=== PATIENT | female | born 1965 | race Caucasian/White ===

== ENCOUNTER → 2016-06-14 | Outpatient (CLI) | payer BC ==
[~2016-06-14] MED LIST: IBUP-103 PO; LSN/10125 PO; SERT50TA PO
[2016-06-14 17:11] LABS: BLOOD UREA NITROGEN 16 mg/dl (7-18); BUN/CREATININE RATIO 16.6 (10-20); CALCIUM 8.6 mg/dl (8.5-10.1); CARBON DIOXIDE 33 mmol/L (21-32); CHLORIDE 107 mmol/L (98-107); CREATININE 0.99 mg/dl (0.60-1.20); GLUCOSE 78 mg/dl (70-99); SODIUM 143 mmol/L (136-145)
[2016-06-14 17:24] LABS: CHOLESTEROL 168 mg/dl (0-200); CHOLESTEROL/HDL RATIO 2.2; HDL CHOLESTEROL 78 mg/dl; LDL CHOLESTEROL CALCULATED 76 mg/dl; TRIGLYCERIDES 70 mg/dl (0-150); VERY LOW DENSITY LIPOPROT CALC 14 mg/dl
== END | disposition home or self-care (01) ==
LOC: C.LABBC 14:41
PROVIDERS: ATTEND Physician Assistant Medical
DX: E03.9 Hypothyroidism, unspecified (principal); I10 Essential (primary) hypertension

== ENCOUNTER 2016-10-28 10:08 | Emergency (ER) | payer BC ==
[~2016-10-28] VITALS: Ht 154.9 cm; Wt 77.2 kg
[2016-10-28 10:09] VITALS: TEMP 36.7; Ht 154.9 cm; Wt 77.2 kg
[2016-10-28] MEDS ORDERED: KETOROLAC TROMETHAMINE 60 MG/2 ML VIAL IM STA (10:22)
--- NOTE | 2016-10-28 11:05 | DIAGNOSTIC IMAGING REPORT ---
L-SPINE MIN 4 VIEWS ROUTINE CLINICAL HISTORY: Back pain radiating into left lower extremity. COMPARISON: None FINDINGS: Alignment of lumbar spine is anatomic. Vertebral body heights are maintained. No fracture or suspicious lesion is present. There is mild to moderate multilevel facet arthrosis and degenerative disc disease of the lumbar spine. Left upper quadrant postsurgical findings are present. IMPRESSION: 1. No acute lumbar spine fracture. 2. Mild to moderate multilevel degenerative disc disease and facet arthrosis of the lumbar spine. Electronically signed by: Diaz Bustamante M.D. 10/28/2016 11:04 AM Dictated Date/Time: 10/28/2016 11:02 AM
--- NOTE | 2016-10-28 11:06 | DIAGNOSTIC IMAGING REPORT ---
LEFT HIP UNILATERAL 2 VIEWS CLINICAL HISTORY: Left hip pain. COMPARISON: None FINDINGS: Alignment of the left hip is anatomic. No fracture or suspicious lesion is present. There is no evidence for avascular necrosis. There is mild osteophytosis of the left hip. IMPRESSION: 1. No acute fracture. 2. Mild osteoarthritis of the left hip. Electronically signed by: Diaz Bustamante M.D. 10/28/2016 11:05 AM Dictated Date/Time: 10/28/2016 11:04 AM
--- NOTE | 2016-10-28 11:08 | DIAGNOSTIC IMAGING REPORT ---
LEFT FOOT MIN 3 VIEWS ROUTINE CLINICAL HISTORY: Left foot pain. COMPARISON: None FINDINGS: There is mild posterior and plantar calcaneal spurring. Tarsometatarsal joints are intact. No acute fracture within the left foot is identified. There is mild arthritis within several articulations of the left foot. IMPRESSION: 1. No acute fracture or dislocation of left foot. 2. Mild osteoarthritis within several articulations of the left foot. Electronically signed by: Diaz Bustamante M.D. 10/28/2016 11:06 AM Dictated Date/Time: 10/28/2016 11:05 AM
[2016-10-28 11:43] VITALS: BP 126/71; PULSE 62; O2SAT 97
--- NOTE | 2016-10-28 15:17 | EMERGENCY ROOM VISIT NOTE ---
History Report prepared by Roman: Pura Morejon Under the Supervision of: Dr. Carroll Gatica M.D. First contact with patient: 10:14 Chief Complaint: LEG PAIN,LEG INJURY Stated Complaint: PAIN IN LEFT HEEL/LEG History of Present Illness The patient is a 51 year old female who presents to the Emergency Room with complaints of persistent foot pain starting a few days ago. 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 For the past few days, when she returns from work and takes off her boots, she has noticed that the bottoms of her feet are sore. She has pain when she tries to bear weight on her feet. Last night, when she took off her boots, she noticed that both feet were sore, but her left foot especially her left heel was more painful than before. She also developed left hip pain later that night. She notes that she was favoring one leg while she was walking. There is no redness or swelling around her hip. She is having leg pain up into her calf. She denies any leg swelling, chest pain, SOB, fever, abdominal pain, or vomiting. She denies any numbness in her feet and can feel her toes. She denies any recent falls. She notes that she has been busier at work for the last few days. Her hip has been bothering her for over 1 year now. She has a history of sciatica. She has not had a flare up of her sciatica in around 15 years. She states that her current pain does feel like sciatica. She denies any history of plantar fasciitis. She denies any history of blood clots in her leg. She denies any recent travel. She denies any hormone use. Source of History: patient Onset: few days ago Position: foot (bilateral) Quality: other (sore) Timing: other (persistent) Modifying Factors (Worsening): other (weight bearing) Associated Symptoms: No fevers, No chest pain, No SOB, No vomiting, No abdominal pain, No numbness Note: Pt reports left hip pain, left leg pain. Pt denies hip redness/swelling, leg swelling. Review of Systems See HPI for pertinent positives & negatives. A total of 10 systems reviewed and were otherwise negative. Past Medical & Surgical Medical Problems: (1) Hypertension Family History Not obtainable due to adoption Social History Smoking Status: Never Smoker Marital Status: Occupation Status: employed Current/Historical Medications Unable to Obtain Active Prescriptions or Reported Meds Allergies Coded Allergies: No Known Allergies (Unverified , 11/28/12) Physical Exam Vital Signs Date Time Temp Pulse Resp B/P (MAP) Pulse Ox O2 Delivery O2 Flow Rate FiO2 10/28/16 11:43 62 16 126/71 97 10/28/16 10:09 36.7 70 18 122/84 99 Room Air Physical Exam Constitutional: Vital signs reviewed. Eyes: Pupils are equal round reactive to light. Conjunctiva are noninjected. ENT: Pharynx is clear without erythema or exudate. Mucous membranes are moist. Neck supple without meningeal signs. Respiratory: Clear to auscultation bilaterally. Breath sounds are equal bilaterally. Cardiovascular: Regular rate and rhythm. No rubs or gallops. GI: Soft, nondistended and nontender. Bowel sounds are present. Musculoskeletal: No midline tenderness to the thoracic or lumbosacral spine. Positive SLR on the left side, negative on the right. Left hip tenderness with deep palpation, full ROM. No swelling or increased warmth. Normal distal pulses. Tender to the plantar fascia of the left foot. No swelling of the extremities. Integumentary: No cyanosis. Neurological: The patient is awake and alert. No focal deficits. Psychiatric: Normal affect. Medical Decision & Procedures ER Provider Diagnostic Interpretation: X-ray results as stated below per interpretation by me and the radiologist: LEFT FOOT MIN 3 VIEWS ROUTINE CLINICAL HISTORY: Left foot pain. COMPARISON: None FINDINGS: There is mild posterior and plantar calcaneal spurring. Tarsometatarsal joints are intact. No acute fracture within the left foot is identified. There is mild arthritis within several articulations of the left foot. IMPRESSION: 1. No acute fracture or dislocation of left foot. 2. Mild osteoarthritis within several articulations of the left foot. Electronically signed by: Diaz Bustamante M.D. 10/28/2016 11:06 AM Dictated Date/Time: 10/28/2016 11:05 AM LEFT HIP UNILATERAL 2 VIEWS CLINICAL HISTORY: Left hip pain. COMPARISON: None FINDINGS: Alignment of the left hip is anatomic. No fracture or suspicious lesion is present. There is no evidence for avascular necrosis. There is mild osteophytosis of the left hip. IMPRESSION: 1. No acute fracture. 2. Mild osteoarthritis of the left hip. Electronically signed by: Diaz Bustamante M.D. 10/28/2016 11:05 AM Dictated Date/Time: 10/28/2016 11:04 AM L-SPINE MIN 4 VIEWS ROUTINE CLINICAL HISTORY: Back pain radiating into left lower extremity. COMPARISON: None FINDINGS: Alignment of lumbar spine is anatomic. Vertebral body heights are maintained. No fracture or suspicious lesion is present. There is mild to moderate multilevel facet arthrosis and degenerative disc disease of the lumbar spine. Left upper quadrant postsurgical findings are present. IMPRESSION: 1. No acute lumbar spine fracture. 2. Mild to moderate multilevel degenerative disc disease and facet arthrosis of the lumbar spine. Electronically signed by: Diaz Bustamante M.D. 10/28/2016 11:04 AM Dictated Date/Time: 10/28/2016 11:02 AM Medications Administered Medications (Trade) Dose Ordered Sig/Екатерина Route Start Time Stop Time Status Last Admin Dose Admin Ketorolac Tromethamine (Toradol Inj) 30 mg NOW STAT IM 10/28/16 10:22 10/28/16 10:25 DC 10/28/16 10:34 30 MG ED Course 1016: The patient was evaluated in room C3. A complete history and physical exam was performed. 1022: Toradol Inj 30 mg IM. 1130: Upon reevaluation, the patient appeared to have improvement of her symptoms. I discussed dain's findings with her. She declined crutches. She verbalized agreement of the treatment plan. She was discharged home. Medical Decision This is a 51-year-old female presents with hip pain rating down her leg with foot pain. Differential diagnosis includes stress fracture, plantar fasciitis, lumbar radiculopathy, osteoarthritis. I did perform a limited focused review of portions of the patient's old chart on the electronic medical record. The patient has had no recent pertinent visits to this hospital. I did evaluate the patient as noted above. The patient is presenting with left foot pain. She is tender over the plantar fascia. His symptoms are consistent with plantar fasciitis. She also complains of hip pain which has been going on for a year as well as pain rating down her leg that she states is consistent with her sciatica. She is neurologically intact. Her distal pulses are normal. There is no discoloration to the leg. No signs of DVT or any known risk factors for DVT. I did order x-rays of the lumbar spine, hip and foot. I did review the images myself as well as the radiology report as described above. She does have osteoarthritis of the foot and hip. And she also has degenerative changes of the back. She was advised follow up with their doctor or an orthopedic physician or a compressed gases tester. I did recommend NSAIDs. She was discharged in good condition. Medication Reconcilliation Current Medication List: was personally reviewed by me Blood Pressure Screening Patient's blood pressure: Elevated blood pressure Blood pressure disposition: Elevated BP felt to be situational Impression Primary Impression: Plantar fasciitis, left Additional Impressions: Lumbar radiculopathy Osteoarthritis Osteoarthritis of foot, left Scribe Attestation The scribe's documentation has been prepared under my direct and personally reviewed by me in its entirety. I confirm that the note above accurately reflects all work, treatment, procedures, and medical decision making performed by me. Departure Information Dispostion Home / Self-Care Prescriptions Unable to Obtain Active Prescriptions or Reported Meds Referrals Shelby Ramsay,P.A. (PCP) Forms HOME CARE DOCUMENTATION FORM, IMPORTANT VISIT INFORMATION Patient Instructions Hip Osteoarthritis, Lumbar Radiculopathy, [facility], Plantar Fasciitis Additional Instructions You have been examined and treated today on an emergency basis only. This is not a substitute for, or an effort to provide, complete comprehensive medical care. It is impossible to recognize and treat all injuries or illnesses in a single emergency department visit. It is therefore important that you follow up closely with your physician. Call as soon as possible for an appointment. Return for worsening symptoms or if you develop fever, vomiting, abdominal pain , loss of control of your bowel or bladder, numbness or weakness to your legs, numbness to your private area, difficulty urinating, chest pain, shortness of breath, swelling or discoloration of the left leg or any other concerning symptoms. Problem Qualifiers Additional Impressions: Osteoarthritis Osteoarthritis location: hip Osteoarthritis type: unspecified Laterality: left Qualified Codes: M16.12 - Unilateral primary osteoarthritis, left hip Osteoarthritis of foot, left Osteoarthritis type: primary Qualified Codes: M19.072 - Primary osteoarthritis, left ankle and foot
== END 2016-10-28 11:44 | disposition home or self-care (01) ==
LOC: C.EDB 10:10 → C.EDC 11:44
DX: M72.2 Plantar fascial fibromatosis (principal); M54.16 Radiculopathy, lumbar region; I10 Essential (primary) hypertension; M51.36 Other intervertebral disc degeneration, lumbar region; M19.072 Primary osteoarthritis, left ankle and foot

== ENCOUNTER 2022-07-17 19:49 | Observation (INO) ==
[2022-07-17] MEDS ORDERED: ONDANSETRON INJ 2 MG/ML 2 ML VIAL IV STA (20:18)
[2022-07-17] MEDS ORDERED: MoRPHine SULFATE 4 MG/ML 1 ML CARP\\VIAL IV STA (20:18)
[2022-07-17 20:37] LABS: Basophils # (auto) 0.04 K/uL (0-0.2); Basophils % (auto) 0.3 %; Eosinophils # (auto) 0.42 K/uL (0-0.50); Eosinophils % (auto) 3.4 %; Immature Granulocytes # (auto) 0.03 K/uL (0.01-0.20); Immature Granulocytes % (auto) 0.2 %; Lymphocytes # (auto) 2.28 K/uL (1.2-3.4); Lymphocytes % (auto) 18.5 %; Mean Corpuscular Hemoglobin 25.4 pg (25.0-34.0); Mean Corpuscular Hgb Conc 31.4 g/dL (32.0-36.0); Mean Corpuscular Volume 80.8 fL (80.0-100.0); Mean Platelet Volume 10.7 fL (9.4-12.4); Monocytes # (auto) 1.13 K/uL (0.11-0.59); Monocytes % (auto) 9.2 %; Neutrophils # (auto) 8.41 K/uL (1.40-6.50); Neutrophils % (auto) 68.4 %; Platelet Count 356 K/uL (130-400); RDW Coefficient of Variation 17.4 % (11.5-14.5); RDW Standard Deviation 51.9 fL (36.4-46.3); Red Blood Count 4.33 M/uL (4.20-5.40); White Blood Count 12.31 K/ul (4.8-10.8)
[2022-07-17 20:52] LABS: Albumin Globulin Ratio 1.3 (0.9-2); Albumin Level 4.5 gm/dl (3.4-5.0); BUN Creatinine Ratio 17.3 (10-20); Bilirubin,Total 0.6 mg/dl (0.2-1.0); Calcium 9.5 mg/dl (8.6-10.3); Creatinine Clr Calc Pharmacy 62.7 ml/min; Est GFR (African American) 65.5 ml/min; Est GFR (Non-African American) 56.5 ml/min; Globulin 3.4 gm/dl (2.5-4.0); Potassium 3.8 mmol/L (3.5-5.1); Total Protein 7.9 gm/dl (6.0-8.3)
[2022-07-17 20:59] LABS: Troponin I High Sensitivity 5.3 pg/ml (0-14)
--- NOTE | 2022-07-17 20:59 | Emergency Department Note ---
ED Provider Note History of Present Illness Chief Complaint: Rib Injury/Pain Stated Complaint: PAIN LEFT SIDE FROM SHOULDER GOING DOWN TO RIB Time Seen by Provider: 07/17/22 20:12 57-year-old female who presents to the emergency department with complaint of left rib and shoulder pain that started 2 hours prior to arrival. The patient r eported that the pain also was worsened with movement of her shoulder and deep breathing. The patient denies any pain radiating into the jaw or neck. She also denies any diaphoresis or nausea. Patient was adopted, so does not know much about her family history. She denies any personal history of blood clots. The patient is not on any control or estrogen. She is status post hysterectomy. The patient denies any recent upper respiratory symptoms, including cough, sore throat, runny nose or sinus congestion. The patient rates her discomfort an 8 out of 10. Home Medications Medication Instructions Recorded Confirmed Type albuterol sulfate 90 mcg/actuation 2 puff inhalation Q6H PRN 10/27/20 07/17/22 Rx aerosol inhaler (ProAir HFA) shortness of breath or wheezing #8.5 grams sertraline 100 mg tablet 200 mg PO HS 07/22/21 07/17/22 History propranolol 80 mg capsule,24 80 mg PO HS #90 caps 10/24/21 07/17/22 Rx hr,extended release Unisom (doxylamine) 25 mg PO HS PRN Insomnia 07/17/22 07/17/22 History meloxicam 15 mg tablet 15 mg PO DAILY 07/17/22 07/17/22 History Allergies Allergy/AdvReac Type Severity Reaction Status Date / Time Penicillins Allergy Mild Rash Verified 07/17/22 20:53 Past Med/Surg History Medical History Adopted Anemia Anxiety and depression Arthritis Asthma ACTIVITY AND ALLERGY INDUCED>HAS NOT USED INHALER FOR A LONG TIME Disc degeneration, lumbar Hx of sleep apnea Hypertension Insomnia Osteoarthritis Restless legs syndrome Vitamin D deficiency Surgical History History of section x2 History of colonoscopy [facility] 2009 History of dilation and curettage X 2 History of esophagogastroduodenoscopy (EGD) History of gastric bypass (~2007) 2007 History of partial hysterectomy History of tooth extraction Family History Grandmother (Maternal) Breast cancer Other Adopted Social History Smoking Status: Never smoker Second Hand Exposure: No; Do You Dip or Chew Tobacco: No; Hx Alcohol Use: No Hx Substance Use: No Preferred Language: Polish Communication Ability: Effective Visual Impairment: Limited Hearing Ability: Normal Splitter Machine Required: No Beliefs That Will Affect Care: None marital status: Current Living Situation: Alone Current Living Situation Comment: just current occupational status: employed 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 Feels Safe at Home: Yes Childhood Exposure to Second-Hand Smoke: No Diet: regular caffeine: Yes Dental Care, Regularly: No Physical Activity Frequency: Does not Exercise Seatbelt Use: always Sunscreen Use: Yes Do you think of yourself as: straight/heterosexual Assistive Devices: Brace/Splint/Immobilizer and Glasses Physical Exam Vital Signs Vital Signs - 24 hr 07/17/22 19:51 07/17/22 20:04 07/17/22 20:14 Temperature 36.7 C Temperature Source Temporal Artery Scan Pulse Rate 80 69 Pulse Rate [Right Apical] 71 Pulse Rate from SpO2 Sensor Pulse Rhythm Regular Pulse Strength Normal Respiratory Rate 20 20 Respiratory Effort / Characteristics Non-Labored Spontaneous Non-Labored Spontaneous Respiratory Depth Normal Normal Respiratory Pattern Regular Regular Blood Pressure 173/106 H Blood Pressure [Right Arm] 167/129 H Blood Pressure Mean 128 Blood Pressure Mean [Right Arm] 141 Blood Pressure Position Sitting Pulse Oximetry 97 97 Oxygen Delivery Method Room Air Room Air Oxygen Flow Rate Sepsis Recent Fever Within 48 Hours No Sepsis New/Unexplained Change in Mental Status N/A Sepsis Action Taken by Nursing No Action Required Oxygen Flow Rate - Titration Pulse Oximetry Post Tiitration 07/17/22 20:23 07/17/22 21:30 07/17/22 20:30 Temperature Temperature Source Pulse Rate 68 75 Pulse Rate [Right Apical] Pulse Rate from SpO2 Sensor 76 Pulse Rhythm Pulse Strength Respiratory Rate 18 19 Respiratory Effort / Characteristics Respiratory Depth Respiratory Pattern Blood Pressure 176/110 H Blood Pressure [Right Arm] Blood Pressure Mean 132 Blood Pressure Mean [Right Arm] Blood Pressure Position Pulse Oximetry 96 87 L 96 Oxygen Delivery Method Room Air Nasal Cannula Room Air Oxygen Flow Rate Sepsis Recent Fever Within 48 Hours Sepsis New/Unexplained Change in Mental Status Sepsis Action Taken by Nursing Oxygen Flow Rate - Titration 2 Pulse Oximetry Post Tiitration 99 07/17/22 21:01 07/17/22 21:30 07/17/22 22:27 Temperature Temperature Source Pulse Rate 79 73 71 Pulse Rate [Right Apical] Pulse Rate from SpO2 Sensor 79 70 Pulse Rhythm Pulse Strength Respiratory Rate 14 14 14 Respiratory Effort / Characteristics Respiratory Depth Respiratory Pattern Blood Pressure 138/89 130/81 111/65 Blood Pressure [Right Arm] Blood Pressure Mean 105 97 80 Blood Pressure Mean [Right Arm] Blood Pressure Position Pulse Oximetry 95 99 92 Oxygen Delivery Method Room Air Nasal Cannula Room Air Oxygen Flow Rate 2 Sepsis Recent Fever Within 48 Hours Sepsis New/Unexplained Change in Mental Status Sepsis Action Taken by Nursing Oxygen Flow Rate - Titration Pulse Oximetry Post Tiitration 07/17/22 22:30 Temperature Temperature Source Pulse Rate Pulse Rate [Right Apical] Pulse Rate from SpO2 Sensor Pulse Rhythm Pulse Strength Respiratory Rate Respiratory Effort / Characteristics Respiratory Depth Respiratory Pattern Blood Pressure Blood Pressure [Right Arm] Blood Pressure Mean Blood Pressure Mean [Right Arm] Blood Pressure Position Pulse Oximetry 100 Oxygen Delivery Method Room Air Oxygen Flow Rate 2 Sepsis Recent Fever Within 48 Hours Sepsis New/Unexplained Change in Mental Status Sepsis Action Taken by Nursing Oxygen Flow Rate - Titration 0 Pulse Oximetry Post Tiitration 92 CONSTITUTIONAL: Healthy and well nourished. Alert and oriented X 3. Patient appears in mild discomfort. Patient is not diaphoretic. HEENT: No scleral icterus or conjunctival injection/pallor. NECK: Full active range of motion without discomfort. No JVD or carotid bruits. LYMPHATICS: No cervical chain adenopathy. RESPIRATORY: Clear to auscultation bilaterally with no wheezing, crackles, rhonchi or stridor. Deep breathing worsens the patient's discomfort. CARDIOVASCULAR: Regular rate and rhythm with no murmurs, rubs or gallops. GASTROINTESTINAL: Bowel sounds present in all quadrants. Soft and nontender to palpation. MUSCULOSKELETAL: Examination shows pain with range of motion of the left shoulder. She is also tender over the left distal clavicle/acromioclavicular joint and left upper chest wall. No focal tenderness through the costochondral joints. No subcutaneous emphysema or crepitance noted with palpation of the chest wall. INTEGUMENTARY: No rash or other significant dermatologic conditions noted. HEMATOLOGIC: No ecchymosis or petechiae. PSYCHIATRIC: Positive affect. NEUROLOGIC: No focal neurologic deficits noted. Course Course Patient history and physical exam were performed. Nurses notes were reviewed. Vital signs were reviewed, showing an elevated blood pressure. The patient is not tachycardic or hypoxic. Patient appears in discomfort, and physical exam does show reproducible tenderness to palpation across the left anterior chest wall and about the left shoulder, with worsening pain with range of motion of th e left shoulder as well. I did explain to the patient that her symptoms are likely musculoskeletal etiology, however recommended further work-up to rule out cardiopulmonary etiology. IV access was established, and labs were drawn. The patient was administered IV morphine and Zofran for pain. An ECG was performed, showing a normal sinus rhythm with nonspecific ST-T wave abnormalities. The patient was placed on gambling monitor while in the emergency department. A portable chest x-ray did not show any concerning findings. Review of labs shows initially a normal high-sensitivity troponin. The patient does have a mild leukocytosis with mild left shift and no bandemia. CMP and lipase were normal. I did reevaluate the patient approximately 1 hour after getting her IV morphine, and reported improvement of pain, but now has a headache. She was administered IV Tylenol for additional pain relief. At this point, the patient's D-dimer did result and was significantly elevated. I did discuss CT angiography with the patient. I did ask about any other recent upper respiratory symptoms. The patient reports that she has had a cough, and thought that it was due to seasonal allergies. The patient agreed to undergo CT imaging. The patient also reported worsening chest pain, and was administered IV Dilaudid as well. CT angiography of the chest showed multiple bilateral pulmonary emboli without right heart strain. A 2-hour repeat troponin and ECG remain normal. Findings were discussed with Dr. Hall, ED attending physician, who recommended hospitalist consultation. An order was placed for hypercoagulability work-up, then the patient was administered IV heparin with selma elly. The COVID-19 test was also ordered. I also ordered bilateral lower extremity venous Dopplers, as the patient reports that she has had some recent discomfort in her legs. Please see the [facility] hospitalist dictation for further treatment and final disposition. Administered Medications Discontinued Medications Hydromorphone HCl (Hydromorphone Inj 0.5 Mg/0.5 Ml Syr) 0.5 mg IV NOW STA Stop: 07/17/22 21:23 Last Admin: 07/17/22 21:26 Dose: 0.5 mg Documented By: RAUDEL Acetaminophen (Ofirmev) 1,000 mg in 100 mls @ 400 mls/hr IV NOW STA Stop: 07/17/22 21:20 Last Infusion: 07/17/22 21:44 Dose: 0 mls/hr Documented By: Admin: 07/17/22 21:26 Dose: 400 mls/hr Documented By: RAUDEL Ioversol (Optiray 320 500ml) 108 ml IV ONCE ONE Stop: 07/17/22 22:07 Last Admin: 07/17/22 22:07 Dose: 108 ml Documented By: ZULEYKA Morphine Sulfate (Morphine Sulfate 4 Mg/Ml 1 Ml Carp\Vial) 4 mg IV NOW STA Stop: 07/17/22 20:19 Last Admin: 07/17/22 20:28 Dose: 4 mg Documented By: RAUDEL Ondansetron HCl (Ondansetron Inj 2 Mg/Ml 2 Ml Vial) 4 mg IV NOW STA Stop: 07/17/22 20:19 Last Admin: 07/17/22 20:28 Dose: 4 mg Documented By: RAUDEL Medical Decision Making Medical Records Attestation: I reviewed the patient's medical records. Home Medications was personally reviewed by me Laboratory Data Attestation: I reviewed the patient's lab results. 07/17/22 20:05 07/17/22 20:05 Lab Results 07/17/22 07/17/22 07/17/22 Range/Units 20:05 20:05 20:05 WBC 12.31 H (4.8-10.8) K/ul RBC 4.33 (4.20-5.40) M/uL Hgb 11.0 L (12.0-16.0) g/dl Hct 35.0 L (37.0-47.0) % MCV 80.8 (80.0-100.0) fL MCH 25.4 (25.0-34.0) pg MCHC 31.4 L (32.0-36.0) g/dL RDW Std Deviation 51.9 H (36.4-46.3) fL RDW Coeff of [place] 17.4 H (11.5-14.5) % Plt Count 356 (130-400) K/uL MPV 10.7 (9.4-12.4) fL Immature Gran % (Auto) 0.2 % Neut % (Auto) 68.4 % Lymph % (Auto) 18.5 % [place] % (Auto) 9.2 % Eos % (Auto) 3.4 % Baso % (Auto) 0.3 % Neut # (Auto) 8.41 H (1.40-6.50) K/uL Lymph # (Auto) 2.28 (1.2-3.4) K/uL [place] # (Auto) 1.13 H (0.11-0.59) K/uL Eos # (Auto) 0.42 (0-0.50) K/uL Baso # (Auto) 0.04 (0-0.2) K/uL Immature Gran # (Auto) 0.03 (0.01-0.20) K/uL PT 10.2 (9.0-12.0) Seconds INR 0.9 (0.9-1.1) APTT 25.7 (21.0-31.0) Seconds PTT Ratio 0.9 D-Dimer 3770 H* (0-500) ug/L FEU Sodium 138 (136-145) mmol/L Potassium 3.8 (3.5-5.1) mmol/L Chloride 104 (98-107) mmol/L Carbon Dioxide 26 (21-32) mmol/L Anion Gap 8 (3-11) BUN 19 (6-23) mg/dl Creatinine 1.10 (0.6-1.2) mg/dl Est Cr Clr Drug Dosing 62.7 ml/min Est GFR ( Amer) 65.5 ml/min Est GFR (Non-Af Amer) 56.5 ml/min BUN/Creatinine Ratio 17.3 (10-20) Glucose 97 (70-99(Fasting)) mg/dl Calcium 9.5 (8.6-10.3) mg/dl Total Bilirubin 0.6 (0.2-1.0) mg/dl AST 17 (13-39) U/L ALT 9 (7-52) U/L Alkaline Phosphatase 92 (34-104) U/L Troponin I High Sens 5.3 (0-14) pg/ml Total Protein 7.9 (6.0-8.3) gm/dl Albumin 4.5 (3.4-5.0) gm/dl Globulin 3.4 (2.5-4.0) gm/dl Albumin/Globulin Ratio 1.3 (0.9-2) Lipase 14 (11-82) U/L SARS-CoV-2, RNA, NAAT (NEGATIVE) 07/17/22 07/17/22 Range/Units 22:22 23:00 WBC (4.8-10.8) K/ul RBC (4.20-5.40) M/uL Hgb (12.0-16.0) g/dl Hct (37.0-47.0) % MCV (80.0-100.0) fL MCH (25.0-34.0) pg MCHC (32.0-36.0) g/dL RDW Std Deviation (36.4-46.3) fL RDW Coeff of [place] (11.5-14.5) % Plt Count (130-400) K/uL MPV (9.4-12.4) fL Immature Gran % (Auto) % Neut % (Auto) % Lymph % (Auto) % [place] % (Auto) % Eos % (Auto) % Baso % (Auto) % Neut # (Auto) (1.40-6.50) K/uL Lymph # (Auto) (1.2-3.4) K/uL [place] # (Auto) (0.11-0.59) K/uL Eos # (Auto) (0-0.50) K/uL Baso # (Auto) (0-0.2) K/uL Immature Gran # (Auto) (0.01-0.20) K/uL PT (9.0-12.0) Seconds INR (0.9-1.1) APTT (21.0-31.0) Seconds PTT Ratio D-Dimer (0-500) ug/L FEU Sodium (136-145) mmol/L Potassium (3.5-5.1) mmol/L Chloride (98-107) mmol/L Carbon Dioxide (21-32) mmol/L Anion Gap (3-11) BUN (6-23) mg/dl Creatinine (0.6-1.2) mg/dl Est Cr Clr Drug Dosing ml/min Est GFR ( Amer) ml/min Est GFR (Non-Af Amer) ml/min BUN/Creatinine Ratio (10-20) Glucose (70-99(Fasting)) mg/dl Calcium (8.6-10.3) mg/dl Total Bilirubin (0.2-1.0) mg/dl AST (13-39) U/L ALT (7-52) U/L Alkaline Phosphatase (34-104) U/L Troponin I High Sens 4.7 (0-14) pg/ml Total Protein (6.0-8.3) gm/dl Albumin (3.4-5.0) gm/dl Globulin (2.5-4.0) gm/dl Albumin/Globulin Ratio (0.9-2) Lipase (11-82) U/L SARS-CoV-2, RNA, NAAT NEGATIVE (NEGATIVE) Imaging Data Attestation: I personally reviewed and interpreted this imaging study as foll ows: My Impression: My interpretation of a portable chest x-ray does not show evidence for pneumonia or pneumothorax. Local radiologist review is pending. CT angiography of the chest was also performed, showing multiple bilateral pulmonary emboli. I did order bilateral lower extremity Dopplers which were still pending prior to transfer of care to the hospitalist service. Radiologist's Impression: Chest CTA 07/17/22 21:22 Exam(s): CTA CHEST IV Amt: 108ml EXAM: CT Angiography Chest With Intravenous Contrast CLINICAL HISTORY: Reason for exam: PE. TECHNIQUE: Axial computed tomographic angiography images of the chest with intravenous contrast. CTDI is 32 mGy and DLP is 508.21 mGy-cm. Automated exposure control was utilized for the study. A dose lowering technique was utilized adhering to the principles of ALARA. MIP reconstructed images were created and reviewed. COMPARISON: None. FINDINGS: Pulmonary arteries: Filling defect identified within the right upper lobe pulmonary artery extending into the distal right pulmonary artery. Filling defect within the proximal segmental and subsegmental pulmonary arteries of the right lower lobe and right middle lobe. Similar filling defect identified within the mid proximal segmental left upper lobe and left lower lobe pulmonary arteries, findings compatible with multiple bilateral multilobar pulmonary emboli. Aorta: Mild atherosclerotic disease of aorta with no dissection or aneurysm. Lungs: Areas of Mosaic pattern demonstrated within the bilateral lung [place] commonly associated with perfusion anomalies or small airway disease. Bilateral lower lobe atelectasis. No mass. Pleural space: Unremarkable. No significant effusion. No pneumothorax. Heart: Borderline cardiomegaly. The RV/LV ratio is 0.9 with no signs of right-sided cardiac strain. No significant pericardial effusion. Bones/joints: No acute fracture. No dislocation. Soft tissues: Unremarkable. Lymph nodes: Unremarkable. No enlarged lymph nodes. Stomach and bowel: Upper abdominal structures reveal postoperative changes at the level of the stomach, otherwise unremarkable. Other findings: Mild degenerative disease of the spine. IMPRESSION: Multiple bilateral pulmonary emboli with no evidence of right-sided cardiac strain. Electronically signed by: Maria Teresa Murrieta MD 07/17/22 22:46 PM ECG Data Attestation: I personally reviewed and interpreted this ECG as follows: Indication: + chest pain and + SOB/dyspnea Rate (beats per minute): 76 Rhythm: + normal sinus ECG Intervals/blocks: + Normal QRS and + Normal ID ECG New [place]: + Normal ECG ST segments: + Nonspecific ST abnormalities Comparison ECG Date: no prior available Additional Comments: A repeat 2-hour ECG continues to show a normal sinus rhythm of [address]-T wave changes. MDM Narrative Cardiac monitoring: An order was placed for continuous cardiac monitoring. The monitor shows a rate of 76 bpm with a normal sinus rhythm. library monitor history was reviewed throughout the evaluation, and no dysrhythmias were noted. Patient presents the emergency department with a 2-day history of left upper chest pain radiating from the shoulder into the ribs. Her examination does show reproducible pain, which is quite unusual given her CT findings showing multiple bilateral pulmonary emboli. Further work-up today shows normal repeat 2-hour ECGs and troponins, and not suggestive of acute cardiac event. CT also does not show evidence for right heart strain. The patient does have a mild leukocytosis with left shift. Coagulation studies were normal. Patient has no electrolyte abnormalities, elevated LFTs or lipase, therefore I do not suspect hepatitis, pancreatitis or cholecystitis. A hypercoagulability work-up was ordered prior to heparin administration. Attending Attestation: Macie Hall MD discussed this case with the physician data control assistant reviewing the laboratory studies and imaging results. Evidence of multiple PEs. No true hypoxia. No significant troponin elevation but given the multiple PEs she is suffering from and her discomfort discussed staying for further observation initiation of a heparin drip with the physician data control assistant. Impression Bilateral pulmonary embolism, Left-sided chest wall pain, Increasing shortness of breath Critical Care Time Critical Care Time: Yes Total Critical Care Time: 32 Discharge Plan Visit Data Chief Complaint: Rib Injury/Pain Stated Complaint: PAIN LEFT SIDE FROM SHOULDER GOING DOWN TO RIB ED Provider: Vignesh Vines ED Midlevel Provider: Tanvir Reveles Discharge Problem: Bilateral pulmonary embolism, Left-sided chest wall pain, Increasing shortness of breath Forms Stand Alone Forms: My [facility] [employer] Prescriptions Prescriptions: No Action propranolol 80 mg capsule,extended release 24 hr 80 mg PO HS Qty: 90 3RF albuterol sulfate [ProAir HFA] 90 mcg/actuation HFA aerosol inhaler 2 puff inhalation Q6H PRN (Reason: shortness of breath or wheezing) Qty: 8.5 5RF Unisom (doxylamine) 25 mg PO HS PRN (Reason: Insomnia) meloxicam 15 mg tablet 15 mg PO DAILY Rx Instructions: take this med with food sertraline 100 mg tablet 200 mg PO HS Referrals Referrals: Madhu Costa DO [Primary Care Provider] -
[2022-07-17] MEDS ORDERED: ACETAMINOPHEN 1,000 MG/100 ML VIAL IV STA (21:06)
[2022-07-17 21:10] LABS: INR 0.9 (0.9-1.1); Partial Thromboplastin Ratio 0.9; Partial Thromboplastin Time 25.7 Seconds (21.0-31.0); Prothrombin Time 10.2 Seconds (9.0-12.0)
[2022-07-17 21:19] LABS: D Dimer 3770 ug/L FEU (0-500)
[2022-07-17] MEDS ORDERED: HYDROmorphone INJ 0.5 MG/0.5 ML SYR IV STA (21:22)
[2022-07-17] MEDS ORDERED: OPTIRAY 320 500ml IV ONE (22:06)
--- NOTE | 2022-07-17 22:47 | CT Scan Report ---
Exam(s): CTA CHEST IV Amt: 108ml EXAM: CT Angiography Chest With Intravenous Contrast CLINICAL HISTORY: Reason for exam: PE. TECHNIQUE: Axial computed tomographic angiography images of the chest with intravenous contrast. CTDI is 32 mGy and DLP is 508.21 mGy-cm. Automated exposure control was utilized for the study. A dose lowering technique was utilized adhering to the principles of ALARA. MIP reconstructed images were created and reviewed. COMPARISON: None. FINDINGS: Pulmonary arteries: Filling defect identified within the right upper lobe pulmonary artery extending into the distal right pulmonary artery. Filling defect within the proximal segmental and subsegmental pulmonary arteries of the right lower lobe and right middle lobe. Similar filling defect identified within the mid proximal segmental left upper lobe and left lower lobe pulmonary arteries, findings compatible with multiple bilateral multilobar pulmonary emboli. Aorta: Mild atherosclerotic disease of aorta with no dissection or aneurysm. Lungs: Areas of Mosaic pattern demonstrated within the bilateral lung [place] commonly associated with perfusion anomalies or small airway disease. Bilateral lower lobe atelectasis. No mass. Pleural space: Unremarkable. No significant effusion. No pneumothorax. Heart: Borderline cardiomegaly. The RV/LV ratio is 0.9 with no signs of right-sided cardiac strain. No significant pericardial effusion. Bones/joints: No acute fracture. No dislocation. Soft tissues: Unremarkable. Lymph nodes: Unremarkable. No enlarged lymph nodes. Stomach and bowel: Upper abdominal structures reveal postoperative changes at the level of the stomach, otherwise unremarkable. Other findings: Mild degenerative disease of the spine. IMPRESSION: Multiple bilateral pulmonary emboli with no evidence of right-sided cardiac strain. Electronically signed by: Maria Teresa Murrieta MD 07/17/22 22:46 PM
[2022-07-17] MEDS ORDERED: Heparin IV Adult Wt-Based Standard WITH Bolus Protocol IV STA (22:58)
[2022-07-17] MEDS ORDERED: HEPARIN SOD (PORCINE) 1000 UNIT/ML IV ONE ×2 (23:13→23:15)
[2022-07-17] MEDS ORDERED: HEPARIN SODIUM/DEXTROSE 25,000 UNITS/500 ML BAG IV SCH (23:15)
--- NOTE | 2022-07-18 00:18 | Ultrasound Report ---
Exam(s): US VENOUS BILATERAL LOWER EXTREMITIES EXAM: US Duplex Bilateral Lower Extremities Veins CLINICAL HISTORY: Reason for exam: Bilat pulmonary emboli. TECHNIQUE: Real-time duplex ultrasound scan of the bilateral lower extremity veins integrating B-mode two-dimensional vascular structure, Doppler spectral analysis, color flow Doppler imaging and compression. COMPARISON: None. FINDINGS: Right deep veins: Unremarkable. No DVT in the right common femoral, femoral, proximal deep femoral or popliteal veins. The veins demonstrate normal color flow, are normally compressible, with normal phasic flow and/or augmentation response. There is color flow identified within 1 of the 2 posterior tibial vein and within the peroneal vein with no flow consistent with deep venous thrombosis. Right superficial veins: Unremarkable. No thrombus in the visualized right great saphenous vein. Left deep veins: Unremarkable. No DVT in the left common femoral, femoral, proximal deep femoral or popliteal veins. The veins demonstrate normal color flow, are normally compressible, with normal phasic flow and/or augmentation response. Left superficial veins: Unremarkable. No thrombus in the visualized left great saphenous vein. Soft tissues: No acute findings. No popliteal cyst. IMPRESSION: Right lower extremity: Deep venous thrombosis within 1 of the posterior tibial veins and within at least one peroneal vein. No deep venous thrombosis from the right common femoral vein into the popliteal vein. Left lower extremity: No ultrasonographic evidence of deep venous thrombosis within the left lower extremity seen. Electronically signed by: Maria Teresa Murrieta MD 07/18/22 00:17 AM
--- NOTE | 2022-07-18 00:22 | History & Physical Report ---
Date of Service July 18, 2022 Assessment & Plan (1) Bilateral pulmonary embolism: (2) Deep vein thrombosis of right lower extremity: (3) Hypothyroidism: (4) Anxiety: (5) Anemia: (6) Recurrent major depressive disorder: (7) Hypertension: (8) Asthma: (9) Insomnia: (10) History of gastric bypass: Plan Multiple bilateral pulmonary emboli/right lower extremity DVT- Hypercoagulable work-up ordered Admit to monitored bed Start Lovenox 1 mg/kg subcu every 12 hours with plan to convert to DOAC tomorrow Patient is up-to-date with colonoscopies, she was advised to have a mammogram, as she is behind schedule on mammogram screenings She was advised to stop taking her meloxicam and avoid any other NSAIDs while on anticoagulation Asthma- Continue usual inhalers as needed Hypertension- Continue propranolol Major depressive disorder- Continue sertraline History of Present Illness Chief Complaint: The patient presents to the emergency department with complaint of left rib and shoulder pain that began about 2 hours prior to arrival, did not get better with a warm shower, and called EMS to be brought to the emergency department. Primary Care Provider: Madhu Costa DO The patient is a 57-year-old female with a past medical history including hypothyroidism anxiety, anemia, recurrent major depressive disorder, lumbar degenerative disc disease, hypertension, insomnia, history of gastric bypass and asthma. The patient presents to the emergency department as noted above. CT angiography PE protocol was positive for multiple bilateral PEs. Bilateral venous Doppler of lower extremities was positive for right lower extremity DVT in 1 of 2 posterior tibial veins and at least one peroneal vein. The patient denies any recent travels, or injuries. She reports having had a colonoscopy last year, she is behind schedule on mammograms. Allergies Allergy/AdvReac Type Severity Reaction Status Date / Time Penicillins Allergy Mild Rash Verified 07/17/22 20:53 Home Medications Medication Instructions Recorded Confirmed Type albuterol sulfate 90 mcg/actuation 2 puff inhalation Q6H PRN 10/27/20 07/17/22 Rx aerosol inhaler (ProAir HFA) shortness of breath or wheezing #8.5 grams sertraline 100 mg tablet 200 mg PO HS 07/22/21 07/17/22 History propranolol 80 mg capsule,24 80 mg PO HS #90 caps 10/24/21 07/17/22 Rx hr,extended release Unisom (doxylamine) 25 mg PO HS PRN Insomnia 07/17/22 07/17/22 History meloxicam 15 mg tablet 15 mg PO DAILY 07/17/22 07/17/22 History Past Med/Surg History Medical History Adopted Anemia Anxiety and depression Arthritis Asthma ACTIVITY AND ALLERGY INDUCED>HAS NOT USED INHALER FOR A LONG TIME Disc degeneration, lumbar Hx of sleep apnea Hypertension Insomnia Osteoarthritis Restless legs syndrome Vitamin D deficiency Surgical History History of section x2 History of colonoscopy [place] 2009 History of dilation and curettage X 2 History of esophagogastroduodenoscopy (EGD) History of gastric bypass (~2007) 2007 History of partial hysterectomy History of tooth extraction Family History Grandmother (Maternal) Breast cancer Other Adopted Social History Smoking Status: Never smoker Second Hand Exposure: No; Do You Dip or Chew Tobacco: No; Hx Alcohol Use: No Hx Substance Use: No Preferred Language: Armenian Communication Ability: Effective Visual Impairment: Limited Hearing Ability: Normal Solar 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 Required: No Beliefs That Will Affect Care: None marital status: Current Living Situation: Alone Current Living Situation Comment: just current occupational status: employed 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 [employer] Feels Safe at Home: Yes Childhood Exposure to Second-Hand Smoke: No Diet: regular caffeine: Yes Dental Care, Regularly: No Physical Activity Frequency: Does not Exercise Seatbelt Use: always Sunscreen Use: Yes Do you think of yourself as: straight/heterosexual Assistive Devices: Brace/Splint/Immobilizer and Glasses Review of Systems Review of Systems: The patient denies palpitations, cough, lower extremity swelling, sore throat, fevers, chills, sweats, nausea, vomiting, diarrhea , constipation, abdominal pain, pelvic pain, blood in urine or stool, dysuria, urinary frequency or urgency, lightheadedness, dizziness, headache, memory loss, loss of consciousness, rash, abnormal bruising or bleeding, imbalance, focal or generalized weakness, numbness or tingling in arms or legs, generalized arthralgias or myalgias, neck pain, or night sweats. The review of systems is otherwise negative other than for that already noted above, and at least 10 systems have been reviewed. Physical Exam Physical Exam: The patient is awake, alert and oriented 3, well developed and well nourished, normocephalic and atraumatic, lying in bed and in no acute distress. HEENT--PERRL, EOMI, mucous membranes and oropharynx dry. Neck--supple. No JVD. No bruits. Thyroid normal, trachea midline, no adenopathy. Heart--normal S1 and S2. No murmurs, rubs or gallops. Lungs--clear bilaterally, no respiratory distress, no accessory muscle use. Abdomen--normal bowel sounds and soft. Nontender. Nondistended, no hernias or masses, no organomegaly. Extremities--no cyanosis or clubbing. No edema. There are good distal pulses b/l. Dermatologic--normal skin turgor, normal color, no abnormal lymph nodes, no rash. Neurologic--cranial nerves II through XII grossly intact. Rheumatologic--normal range of motion. Psychiatric--normal affect. Results & Data Results & Data Vital Signs (Past 12 Hours) Vital Signs Temp Pulse Pulse Resp BP BP Pulse Ox 07/18/22 00:04 69 24 113/75 93 07/17/22 23:00 73 20 121/70 93 07/17/22 22:30 100 07/17/22 22:27 71 14 111/65 92 07/17/22 21:30 73 14 130/81 99 07/17/22 21:01 79 14 138/89 95 07/17/22 20:30 75 19 176/110 H 96 07/17/22 21:30 87 L 07/17/22 20:23 68 18 96 07/17/22 20:14 69 07/17/22 20:04 71 20 167/129 H 97 07/17/22 19:51 36.7 C 80 20 173/106 H 97 O2 Del Method O2 Flow Rate 07/18/22 00:04 07/17/22 23:00 07/17/22 22:30 Room Air 2 07/17/22 22:27 Room Air 07/17/22 21:30 Nasal Cannula 2 07/17/22 21:01 Room Air 07/17/22 20:30 Room Air 07/17/22 21:30 Nasal Cannula 07/17/22 20:23 Room Air 07/17/22 20:14 07/17/22 20:04 Room Air 07/17/22 19:51 Room Air Laboratory Results Laboratory Results WBC 12.31 K/ul (4.8-10.8) H 07/17/22 20:05 RBC 4.33 M/uL (4.20-5.40) 07/17/22 20:05 Hgb 11.0 g/dl (12.0-16.0) L 07/17/22 20:05 Hct 35.0 % (37.0-47.0) L 07/17/22 20:05 MCV 80.8 fL (80.0-100.0) 07/17/22 20:05 MCH 25.4 pg (25.0-34.0) 07/17/22 20:05 MCHC 31.4 g/dL (32.0-36.0) L 07/17/22 20:05 RDW Std Deviation 51.9 fL (36.4-46.3) H 07/17/22 20:05 RDW Coeff of [place] 17.4 % (11.5-14.5) H 07/17/22 20:05 Plt Count 356 K/uL (130-400) 07/17/22 20:05 MPV 10.7 fL (9.4-12.4) 07/17/22 20:05 Immature Gran % (Auto) 0.2 % 07/17/22 20:05 Neut % (Auto) 68.4 % 07/17/22 20:05 Lymph % (Auto) 18.5 % 07/17/22 20:05 [place] % (Auto) 9.2 % 07/17/22 20:05 Eos % (Auto) 3.4 % 07/17/22 20:05 Baso % (Auto) 0.3 % 07/17/22 20:05 Neut # (Auto) 8.41 K/uL (1.40-6.50) H 07/17/22 20:05 Lymph # (Auto) 2.28 K/uL (1.2-3.4) 07/17/22 20:05 [place] # (Auto) 1.13 K/uL (0.11-0.59) H 07/17/22 20:05 Eos # (Auto) 0.42 K/uL (0-0.50) 07/17/22 20:05 Baso # (Auto) 0.04 K/uL (0-0.2) 07/17/22 20:05 Immature Gran # (Auto) 0.03 K/uL (0.01-0.20) 07/17/22 20:05 PT 10.2 Seconds (9.0-12.0) 07/17/22 20:05 INR 0.9 (0.9-1.1) 07/17/22 20:05 APTT 25.7 Seconds (21.0-31.0) 07/17/22 20:05 PTT Ratio 0.9 07/17/22 20:05 D-Dimer 3770 ug/L FEU (0-500) H* 07/17/22 20:05 Sodium 138 mmol/L (136-145) 07/17/22 20:05 Potassium 3.8 mmol/L (3.5-5.1) 07/17/22 20:05 Chloride 104 mmol/L (98-107) 07/17/22 20:05 Carbon Dioxide 26 mmol/L (21-32) 07/17/22 20:05 Anion Gap 8 (3-11) 07/17/22 20:05 BUN 19 mg/dl (6-23) 07/17/22 20:05 Creatinine 1.10 mg/dl (0.6-1.2) 07/17/22 20:05 Est Cr Clr Drug Dosing 62.7 ml/min 07/17/22 20:05 Est GFR ( Amer) 65.5 ml/min 07/17/22 20:05 Est GFR (Non-Af Amer) 56.5 ml/min 07/17/22 20:05 BUN/Creatinine Ratio 17.3 (10-20) 07/17/22 20:05 Glucose 97 mg/dl (70-99(Fasting)) 07/17/22 20:05 Calcium 9.5 mg/dl (8.6-10.3) 07/17/22 20:05 Total Bilirubin 0.6 mg/dl (0.2-1.0) 07/17/22 20:05 AST 17 U/L (13-39) 07/17/22 20:05 ALT 9 U/L (7-52) 07/17/22 20:05 Alkaline Phosphatase 92 U/L (34-104) 07/17/22 20:05 Troponin I High Sens 4.7 pg/ml (0-14) 07/17/22 22:22 Total Protein 7.9 gm/dl (6.0-8.3) 07/17/22 20:05 Albumin 4.5 gm/dl (3.4-5.0) 07/17/22 20:05 Globulin 3.4 gm/dl (2.5-4.0) 07/17/22 20:05 Albumin/Globulin Ratio 1.3 (0.9-2) 07/17/22 20:05 Lipase 14 U/L (11-82) 07/17/22 20:05 SARS-CoV-2, RNA, NAAT NEGATIVE (NEGATIVE) 07/17/22 23:00 Impressions Chest CTA 07/17/22 21:22 Exam(s): CTA CHEST IV Amt: 108ml EXAM: CT Angiography Chest With Intravenous Contrast CLINICAL HISTORY: Reason for exam: PE. TECHNIQUE: Axial computed tomographic angiography images of the chest with intravenous contrast. CTDI is 32 mGy and DLP is 508.21 mGy-cm. Automated exposure control was utilized for the study. A dose lowering technique was utilized adhering to the principles of ALARA. MIP reconstructed images were created and reviewed. COMPARISON: None. FINDINGS: Pulmonary arteries: Filling defect identified within the right upper lobe pulmonary artery extending into the distal right pulmonary artery. Filling defect within the proximal segmental and subsegmental pulmonary arteries of the right lower lobe and right middle lobe. Similar filling defect identified within the mid proximal segmental left upper lobe and left lower lobe pulmonary arteries, findings compatible with multiple bilateral multilobar pulmonary emboli. Aorta: Mild atherosclerotic disease of aorta with no dissection or aneurysm. Lungs: Areas of Mosaic pattern demonstrated within the bilateral lung [place] commonly associated with perfusion anomalies or small airway disease. Bilateral lower lobe atelectasis. No mass. Pleural space: Unremarkable. No significant effusion. No pneumothorax. Heart: Borderline cardiomegaly. The RV/LV ratio is 0.9 with no signs of right-sided cardiac strain. No significant pericardial effusion. Bones/joints: No acute fracture. No dislocation. Soft tissues: Unremarkable. Lymph nodes: Unremarkable. No enlarged lymph nodes. Stomach and bowel: Upper abdominal structures reveal postoperative changes at the level of the stomach, otherwise unremarkable. Other findings: Mild degenerative disease of the spine. IMPRESSION: Multiple bilateral pulmonary emboli with no evidence of right-sided cardiac strain. Electronically signed by: Maria Teresa Murrieta MD 07/17/22 22:46 PM Venous Doppler Study 07/17/22 22:58 Exam(s): US VENOUS BILATERAL LOWER EXTREMITIES EXAM: US Duplex Bilateral Lower Extremities Veins CLINICAL HISTORY: Reason for exam: Bilat pulmonary emboli. TECHNIQUE: Real-time duplex ultrasound scan of the bilateral lower extremity veins integrating B-mode two-dimensional vascular structure, Doppler spectral analysis, color flow Doppler imaging and compression. COMPARISON: None. FINDINGS: Right deep veins: Unremarkable. No DVT in the right common femoral, femoral, proximal deep femoral or popliteal veins. The veins demonstrate normal color flow, are normally compressible, with normal phasic flow and/or augmentation response. There is color flow identified within 1 of the 2 posterior tibial vein and within the peroneal vein with no flow consistent with deep venous thrombosis. Right superficial veins: Unremarkable. No thrombus in the visualized right great saphenous vein. Left deep veins: Unremarkable. No DVT in the left common femoral, femoral, proximal deep femoral or popliteal veins. The veins demonstrate normal color flow, are normally compressible, with normal phasic flow and/or augmentation response. Left superficial veins: Unremarkable. No thrombus in the visualized left great saphenous vein. Soft tissues: No acute findings. No popliteal cyst. IMPRESSION: Right lower extremity: Deep venous thrombosis within 1 of the posterior tibial veins and within at least one peroneal vein. No deep venous thrombosis from the right common femoral vein into the popliteal vein. Left lower extremity: No ultrasonographic evidence of deep venous thrombosis within the left lower extremity seen. Electronically signed by: Maria Teresa Murrieta MD 07/18/22 00:17 AM Code Status & VTE Plan Code Status Full code VTE Prophylaxis Plan VTE Prophylaxis will be ordered: Yes PG Care Time/CCT Total # of Minutes Spent Total Time Spent with Patient: Total time spent is greater than 50% in coordination of care (as documented) at patient's floor/unit and/or counseling patient: Coding Level of Care Code 78159 INT INP/OBS CARE 3/75MIN Diagnoses Bilateral pulmonary embolism I26.99 Deep vein thrombosis of right lower extremity I82.401 Hypothyroidism E03.9 Anxiety F41.9 Anemia D64.9 Recurrent major depressive disorder F33.9 Hypertension I10 Asthma J45.909 Insomnia G47.00 History of gastric bypass Z98.84
[2022-07-18] MEDS ORDERED: ENOXAPARIN 100 MG/1ML SYR SQ SCH (00:30)
[2022-07-18] MEDS ORDERED: ACETAMINOPHEN 325 MG TAB PO PRN (01:47)
[2022-07-18] MEDS ORDERED: ALBUTEROL HFA 8 GM INHALER INH PRN (01:47)
[2022-07-18] MEDS ORDERED: ONDANSETRON INJ 2 MG/ML 2 ML VIAL IV PRN (01:47)
[2022-07-18 05:15] LABS: Albumin Level 3.9 gm/dl (3.4-5.0); BUN Creatinine Ratio 16.1 (10-20); Creatinine Clr Calc Pharmacy 61.5 ml/min; Est GFR (Non-African American) 55.3 ml/min; Phosphorus 4.9 mg/dl (2.5-4.9); Potassium 4.2 mmol/L (3.5-5.1)
[2022-07-18 05:16] LABS: Basophils # (auto) 0.04 K/uL (0-0.2); Basophils % (auto) 0.4 %; Eosinophils # (auto) 0.27 K/uL (0-0.50); Eosinophils % (auto) 2.7 %; Hematocrit (blood only) 31.1 % (37.0-47.0); Hemoglobin 9.6 g/dl (12.0-16.0); Immature Granulocytes # (auto) 0.05 K/uL (0.01-0.20); Immature Granulocytes % (auto) 0.5 %; Lymphocytes # (auto) 2.59 K/uL (1.2-3.4); Lymphocytes % (auto) 25.7 %; Mean Corpuscular Hemoglobin 25.2 pg (25.0-34.0); Mean Corpuscular Hgb Conc 30.9 g/dL (32.0-36.0); Mean Corpuscular Volume 81.6 fL (80.0-100.0); Mean Platelet Volume 10.3 fL (9.4-12.4); Monocytes # (auto) 0.95 K/uL (0.11-0.59); Monocytes % (auto) 9.4 %; Neutrophils # (auto) 6.19 K/uL (1.40-6.50); Neutrophils % (auto) 61.3 %; Platelet Count 286 K/uL (130-400); RDW Coefficient of Variation 17.6 % (11.5-14.5); RDW Standard Deviation 52.3 fL (36.4-46.3); Red Blood Count 3.81 M/uL (4.20-5.40); White Blood Count 10.09 K/ul (4.8-10.8)
[2022-07-18 05:22] LABS: Prothrombin Time 10.7 Seconds (9.0-12.0)
--- NOTE | 2022-07-18 07:48 | XRay Report ---
XR chest 1V portable HISTORY: 57 years-old Female Chest pain, nonspecific COMPARISON: CTA chest of same day TECHNIQUE: AP view of the chest FINDINGS: Cardiac silhouette is mildly enlarged. Mild subsegmental bibasilar densities. No pneumothorax, pleura l effusion, lumbar space consolidation or overt pulmonary edema. Bones appear grossly intact. IMPRESSION: Cardiomegaly with mild subsegmental bibasilar atelectasis. ACT 112: Negative or not required by law. The above report was generated using voice recognition software. It may contain grammatical, syntax o r spelling errors. Electronically signed by: Jesus Sams M.D. 07/18/2022 7:47 AM
--- NOTE | 2022-07-18 08:04 | Hospitalist Progress Note ---
Date of Service July 18, 2022 Assessment & Plan (1) Bilateral pulmonary embolism: Plan: 57F with PMH hypothyroidism, anxiety, anemia, depression, lumbar DDD, hypertension, insomnia, asthma, who presented with severe right-sided chest wall pain x2 days. Now admitted for management of bilateral pulmonary embolism, right-sided LE DVT. Pulmonary embolism/right LE DVT -Multiple bilateral pulmonary emboli, right LE DVT seen on chest CTA, LE US. -No evidence of right heart strain on EKG, echocardiogram. -Now s/p IV heparin. -VTE appears to be unprovoked. Patient denies immobilization, use of OCP, recent history of long trips. No prior history of DVT or PE. -Low concern for neoplastic process. No evidence of metastatic disease on imaging. No family history of coagulopathy. * Transitioned to p.o. anticoagulation: Eliquis 10 mg twice daily x7 days. Continue Eliquis 5 mg twice daily x6+ months. * Likely discharge tomorrow Anxiety/depression -Patient takes sertraline 200 mg at home. * Continue home regimen Lumbar DDD -Takes meloxicam at home. * Continue home regimen Hypertension -Takes propranolol 80 mg nightly at home. * Continue home regimen. Asthma -Uses albuterol inhaler as needed for wheezing or shortness of breath. * Continue as at home. Code: Full code Dispo: PCU FEN/GI: Heart healthy DVT Prophylaxis: Eliquis 10 mg twice daily PT/OT: No Consults: None Case Management: No (2) Deep vein thrombosis of right lower extremity: (3) Anxiety: (4) Recurrent major depressive disorder: (5) Asthma: (6) Hypertension: Admission and Anticipated Discharge Date Admission Date: July 18, 2022 Subjective Patient is awake and alert at bedside upon arrival this morning. She continues to report some left-sided chest pain, though improved from admission. She also is reporting residual right lower extremity pain and, now, new onset left lower extremity calf pain. She denies headache, dizziness, shortness of breath, abdominal pain, nausea, vomiting. She is yet to ambulate on her own at this time. Review of Systems Review of Systems: All systems reviewed & are unremarkable except as noted in HPI & below Physical Exam Physical Exam: General: No acute distress HEENT: PERRLA. Normal conjunctiva, anicteric sclera. Oropharynx normal. Respiratory: Normal respiratory effort, CTABL. Cardiovascular: RRR without murmurs, gallops, or rubs. No edema. GI: Soft abdomen with normal bowel sounds heard on auscultation. Nontender x4 quadrants Neuro: Alert and oriented x3. Results & Data Results & Data Vital Signs (Past 12 Hours) Vital Signs Temp Pulse Pulse Resp BP BP Pulse Ox 07/18/22 07:00 36.7 C 59 L 16 114/73 97 07/18/22 02:00 65 07/18/22 01:56 07/18/22 01:47 07/18/22 01:47 36.7 C 62 16 121/82 97 07/18/22 01:47 07/18/22 01:40 36.7 C 65 16 121/82 97 07/18/22 01:01 71 20 110/65 96 07/18/22 00:04 69 24 113/75 93 07/17/22 23:00 73 20 121/70 93 07/17/22 22:30 100 07/17/22 22:27 71 14 111/65 92 07/17/22 21:30 73 14 130/81 99 07/17/22 21:01 79 14 138/89 95 07/17/22 20:30 75 19 176/110 H 96 07/17/22 21:30 87 L 07/17/22 20:23 68 18 96 07/17/22 20:14 69 07/17/22 20:04 71 20 167/129 H 97 Pulse Ox O2 Del Method O2 Del Method O2 Flow Rate O2 Flow Rate 07/18/22 07:00 Room Air 07/18/22 02:00 07/18/22 01:56 Nasal Cannula 2 07/18/22 01:47 98 Nasal Cannula 2 07/18/22 01:47 Nasal Cannula 2 07/18/22 01:47 97 Nasal Cannula 2 07/18/22 01:40 Nasal Cannula 2 07/18/22 01:01 Nasal Cannula 2 07/18/22 00:04 07/17/22 23:00 07/17/22 22:30 Room Air 2 07/17/22 22:27 Room Air 07/17/22 21:30 Nasal Cannula 2 07/17/22 21:01 Room Air 07/17/22 20:30 Room Air 07/17/22 21:30 Nasal Cannula 07/17/22 20:23 Room Air 07/17/22 20:14 07/17/22 20:04 Room Air Resident Activity Tracking Resident Involvement: Resident Care Provided Care Provided: Adult Hospital Medicine
--- NOTE | 2022-07-18 08:24 | XRay Report ---
LEFT SHOULDER 3 VIEWS CLINICAL HISTORY: Left shoulder pain. FINDINGS: 3 views of the left shoulder are compared to study dated 04/11/2014. The skeletal structures are well mineralized for age. There is no radiographic evidence of fracture or dislocation. Mild pro ductive degenerative change is seen at the acromioclavicular joint. The glenohumeral articulation is preserved. The overlying soft tissues are within normal limits. The visualized left lung parenchyma a ppears clear. IMPRESSION: No acute bony abnormality is identified. Electronically signed by: Gene Burnett M.D. 07/18/2022 8:22 AM
[2022-07-18] MEDS ORDERED: APIXABAN 5 MG TABLET PO SCH (09:00)
[2022-07-18] MEDS ORDERED: IBUPROFEN 600 MG TAB PO STA (11:33)
--- NOTE | 2022-07-18 14:56 | Discharge Summary ---
Date of Service July 18, 2022 Admission HPI Per Admitting Provider The patient is a 57-year-old female with a past medical history including hypothyroidism anxiety, anemia, recurrent major depressive disorder, lumbar degenerative disc disease, hypertension, insomnia, history of gastric bypass and asthma. The patient presents to the emergency department as noted above. CT angiography PE protocol was positive for multiple bilateral PEs. Bilateral venous Doppler of lower extremities was positive for right lower extremity DVT in 1 of 2 posterior tibial veins and at least one peroneal vein. The patient denies any recent travels, or injuries. She reports having had a colonoscopy l ast year, she is behind schedule on mammograms. Principal Diagnosis VTE (PE, DVT) Discharge Exam In general she is awake alert oriented pleasant no distress. HEENT normocephalic atraumatic mucous membranes moist. Breathing unlabored no accessory muscle use good effort. Skin shows no rashes no pallor or icterus. Neuro without focal deficits. Discharge Data Allergies Allergy/AdvReac Type Severity Reaction Status Date / Time Penicillins Allergy Mild Rash Verified 07/17/22 20:53 Ordered Studies 07/17/22 21:22 CT angio chest PE protocol Stat 07/17/22 22:58 US venous doppler LE Stat Hospital Course (1) Bilateral pulmonary embolism: Acute VTE manifest as PEs/DVTrisks predominantly centered on venous stasis (morbid obesity with BMI 41.7, back pain limiting movement some)fortunately very stable, pain controlled, feels up to going home. Initiated Eliquis 10 mg twice dailywill treat with 10 mg twice daily for a week, then 5 mg twice daily thereafter. After 3 months, could definitely consider lower (prophylactic) dosingbut given that this was minimally provoked rather than major reversible provoking factors, unless she runs into any significant bleeding trouble, likely would have her anticoagulated indefinitely. Safe/stable for home. Total Time Total Time Spent Total Time Spent (In Minutes): <30 Discharge Plan Discharge Items Patient Disposition: Home - Self-Care Reason For Visit: BILATERAL PE's Discharge Diagnosis: VTE (PE, DVT) Activity: Resume your previous activity Non-emergency contact: Primary Care Provider Call non-emergency contact if: you have any medication questions Follow-up/Referrals: Madhu Costa, [Primary Care Provider] - Diet: Regular Addtl Attending Provider Instructions: Blood clots (pulmonary emboli, deep venous thrombosis)as we discussed, you are fortunately doing extremely well in the context of the clots. Clots are quite common, and fortunately are very easy to treat in the modern era. Usually we will use one of the oral anticoagulants such as Eliquis (but if the Eliquis is too expensive, call us back, because in your context of using Eliquis, Xarelto, Pradaxa would all basically be interchangeableso cost is probably the most important factor distinguishing 1 from the other). Treatment with Eliquis will be 10 mg twice a day for the first 7 days, then 5 mg twice a day thereafter. After about 3 months, Dr. Costa will see how you are doing, and probably be able to reduce the dose to more of a preventative dose. Given that there were not major provoking factors (such as a surgery in the last few weeks, or car accident with a lot of trauma, etc.) you most likely would fit into the category of benefiting from some degree of indefinite anticoagulation. Like we discussed, fortunately with the newer oral blood thinners, lower doses to prevent clots are pretty effective, and obviously at a lower dose there is less risk of bleeding. -If you have any bleedingif its bleeding that you can put pressure on it, put pressure on it and then look at the clock. This would be things such as a cut, or nosebleed. If it is bleeding that responds to 10 minutes of pressure, then it really can be in the category of "nuisance bleeding". At the same time, if its bleeding that does not respond to 10 minutes of pressure, you should get evaluatedif it is a cut, it may need a stitch put in it; if it is a nosebleed, it may need packed or cauterized. Likewise, if its bleeding that you cannot put pressure on (such as vomiting blood or pooping blood) those situations should warrant a more immediate evaluation. Fortunately, like we discussed, the newer blood thinners are also much lingo cleaner as far as overall bleeding compared to old medications like Coumadin. Because anti-inflammatories can lead to stomach ulcers, and because a stomach ulcer when you are on a blood thinner could be a much more significant bleeding problem than under normal circumstances, unfortunately I would recommend that you stop taking the meloxicam (and avoid other anti-inflammatory such as ibuprofen, naproxen, etc.). That is not to say that you can never take an anti- inflammatorybut really more for "spot duty"may be for a day or 2 and then stop. For regular arthritis pains/aches and pains/etc.talk to Dr. Costa about nonmedical treatments (that are often just as effective/more effective in the long run) and the safest would be taking extra strength Tylenol or Tylenol arthritis. *there are several lab tests pending, sent by the admitting team, to look for several types of specific clotting disorders. This can sometimes shed light on things, but generally (outside of very few specific clotting disorders) actually changes the management of things. Pending Studies at Discharge: Yes (labwork to look for specific clotting disorders) Stand-Alone Forms: My [facility], Smoking Cessation Medications and DC Order Prescriptions: New Eliquis 5 mg tablet 5 mg PO BID Qty: 70 0RF Rx Instructions: 2 tabs (10mg) bid x 7 days (start PM of 07/18) then 5mg bid Continued propranolol 80 mg capsule,extended release 24 hr 80 mg PO HS Qty: 90 3RF albuterol sulfate [ProAir HFA] 90 mcg/actuation HFA aerosol inhaler 2 puff inhalation Q6H PRN (Reason: shortness of breath or wheezing) Qty: 8.5 5RF Unisom (doxylamine) 25 mg PO HS PRN (Reason: Insomnia) sertraline 100 mg tablet 200 mg PO HS Discontinued meloxicam 15 mg tablet 15 mg PO DAILY Rx Instructions: take this med with food Discharge Orders: Discharge Order (Routine); Ordered 07/18/22 Ordered By: Ervin Aguila Admission Data Admit Date/Time: 07/18/22 00:20 Attending Provider: Ervin Aguila Admit Provider: Sandro Ceron Primary Care Provider: Madhu Costa Other Providers: Sandro Ceron Coding Level of Care Code 72707 IN/OBS DISCH 30 MIN/LESS Diagnoses Bilateral pulmonary embolism I26.99
--- NOTE | 2022-07-18 15:12 | XCELERA ---
[id number]
[2022-07-18] MEDS ORDERED: SERTRALINE HCL 100 MG TABLET PO SCH (21:00)
[2022-07-18] MEDS ORDERED: PROPRANOLOL HCL LA 80 MG CAPCR PO SCH (21:00)
--- NOTE | 2022-07-19 05:39 | Electrocardiogram Report ---
Test Reason : Blood Pressure : / mmHG Vent. Rate : 076 BPM Atrial Rate : 076 BPM P-R Int : 144 ms QRS Dur : 072 ms QT Int : 366 ms P-R-T Axes : 045 015 010 degrees QTc Int : 411 ms Normal sinus rhythm Nonspecific ST and T wave abnormality Abnormal ECG No previous ECGs available Confirmed by Robby Mustafa ([id number]) on 07/19/2022 5:39:38 AM Referred By: REFERRED SELF Confirmed By:Robby Mustafa
--- NOTE | 2022-07-19 05:44 | Electrocardiogram Report ---
Test Reason : Blood Pressure : / mmHG Vent. Rate : 074 BPM Atrial Rate : 074 BPM P-R Int : 144 ms QRS Dur : 070 ms QT Int : 410 ms P-R-T Axes : 030 010 008 degrees QTc Int : 455 ms Normal sinus rhythm Nonspecific ST and T wave abnormality Abnormal ECG When compared with ECG of 17-JUL-2022 19:57, No significant change was found Confirmed by Robby Mustafa ([id number]) on 07/19/2022 5:43:51 AM Referred By: REFERRED SELF Confirmed By:Robby Mustafa
[2022-07-23 06:22] LABS: Anti Cardiolipin Ab IgG <2.0 GPL-U/mL; Anti Cardiolipin Ab IgM <2.0 MPL-U/mL; Anti-Thrombin III Activity 107 % normal (80-135); B2 Glycoprotein IgG <2.0 U/mL (<20.0); B2 Glycoprotein IgM <2.0 U/mL (<20.0); PTT LA Screen 34 sec (<=40); Protein S Functional(Activity) 82 % normal (60-140)
[2022-07-26 00:08] LABS: Factor 5 Mutation POSITIVE
== END 2022-07-18 19:46 | disposition home or self-care (01) | DRG 299 ==
LOC: ED 19:49 → SUATTDRO 07-18 00:20 → INTOOBSV 07-18 00:20 → 4W 07-18 00:20